=== PATIENT | male | born 1995 | race Caucasian/White ===

== ENCOUNTER 2019-09-12 10:10 | Emergency (ER) | payer MEDICAID ==
[~2019-09-12] VITALS: Ht 195.6 cm; Wt 99.8 kg
[2019-09-12 10:15] VITALS: BP_SYST 126
--- NOTE | 2019-09-12 10:17 | NUR ---
BROUGHT BACK TO BED #6 AND TRIAGED. REPORT GIVEN TO ANDREA
--- NOTE | 2019-09-12 10:25 | NUR ---
PT STATES MONTHS WITH RASH TO GROIN/THIGH FOLDS AREA, NO RASH NOTED TO PENIS, AND TO BUTTOCKS. STATES HE HAS BEEN USING JOCK ITCH SPRAY/CREAM AND ONLY TAKES AWAY ITCHYNESS.
--- NOTE | 2019-09-12 10:37 | NUR ---
DR BAUER AT BEDSIDE FOR EVALUATION
--- NOTE | 2019-09-12 11:02 | NUR ---
Patient given written and verbal discharge instructions and verbalizes understanding. ER MD discussed with patient the results and treatment provided. Patient in stable condition. ID arm band removed. Rx of LOTRIMIN, DIFLUCAN given. Patient educated on pain management and to follow up with PMD. Pain Scale 0/10. Opportunity for questions provided and answered. Medication side effect fact sheet provided.
== END 2019-09-12 11:02 | disposition home or self-care (01) ==
LOC: SED 10:10
DX: B35.6 Tinea cruris (principal); I10 Essential (primary) hypertension
CPT/HCPCS: 99283